=== PATIENT | male | born 1980 | race Caucasian/White ===

== ENCOUNTER 2016-12-12 13:05 | Emergency (ER) | payer OTHER ==
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
[2016-12-12 14:27] VITALS: BP 119/76; PULSE 68; RESP 17; TEMP 98.2; O2SAT 97
== END 2016-12-12 14:25 | disposition home or self-care (01) ==
DX: M54.5 Low back pain (principal)